=== PATIENT | female | born 1980 | race Caucasian/White ===

== ENCOUNTER 2021-03-29 13:29 | Emergency (ER) | payer OTHER ==
[~2021-03-29 13:29] MED LIST: VIBRAMYCIN100 MG PO
[2021-03-29] MEDS ORDERED: CYCLOBENZAPRINE10 MG PO ×2 (16:59→17:01)
== END 2021-03-29 17:51 | disposition home or self-care (01) ==
LOC: FER 13:29
DX: S16.1XXA Strain of muscle, fascia and tendon at neck level, initial encounter (principal); S00.83XA Contusion of other part of head, initial encounter; V49.40XA Driver injured in collision with unspecified motor vehicles in traffic accident, initial encounter; Y92.410 Unspecified street and highway as the place of occurrence of the external cause
CPT/HCPCS: 70450; 72125

== ENCOUNTER 2021-03-31 14:07 | Emergency (ER) | payer OTHER ==
[~2021-03-31 14:07] MED LIST changes: +CYCLOBENZAPRINE10 MG PO
[2021-03-31] MEDS ORDERED: ZOFRAN4 M1 PO (17:08)
== END 2021-03-31 17:34 | disposition home or self-care (01) ==
LOC: FER 14:07
DX: F07.81 Postconcussional syndrome (principal); V43.52XA Car driver injured in collision with other type car in traffic accident, initial encounter; Y92.410 Unspecified street and highway as the place of occurrence of the external cause
CPT/HCPCS: 70486